=== PATIENT | female | born 1995 | race African-American/Black ===

== ENCOUNTER 2019-09-24 15:54 | Emergency (ER) | payer BC ==
[2019-09-24] MEDS ORDERED: NS 0.9% 1000 ML** 1,000 ML IV ONE (15:57)
[2019-09-24] MEDS ORDERED: methylPREDNISolone 125 MG* 2 ML VIAL IV ONE (15:57)
[2019-09-24] MEDS ORDERED: Famotidine IV* 10 MG/ML 2 ML (20 mg) IV SLOW PU ONE (15:57)
--- NOTE | 2019-09-24 15:59 | ED ---
Allergic Reaction/Systemic - HPI Summary HPI Summary: This patient is a 23 year old female brought in by EMS presenting to [facility] with a chief complaint of allergic reaction. The patient was walking into an academic building when suddenly she started sneezing and she started to notice swelling in her face, SOB, nasal congestion and throat tightening, realizing she was having an allergic reaction. She went to [facility] where they gave her epinephrine and nebulizer treatments to help her breathing, and then was brought here by EMS. She states she feels most of her symptoms have resolved, other than some facial swelling and nasal congestion. She states she has a nut allergy, does not believe she had nuts and is unsure what caused the reaction. Medications reviewed, allergies noted. - History of Current Complaint Hx Obtained From: Patient, EMS Onset/Duration: Started hours ago - Allergies/Home Medications Allergies/Adverse Reactions: Allergies Allergy/AdvReac Type Severity Reaction Status Date / Time legumes Allergy Swelling Verified 09/24/19 15:57 Of Face,Lips,& Throat peanut Allergy Anaphylatic Verified 09/24/19 15:57 Shock PMH/Surg Hx/FS Hx/Imm Hx Endocrine/Hematology History: Denies: Hx Diabetes Cardiovascular History: Denies: Hx Coronary Artery Disease - Family History Known Family History: Negative: Cardiac Disease - Social History Occupation: Student Alcohol Use: Occasionally Hx Substance Use: No Hx Tobacco Use: No Review of Systems Positive: Sore Throat, Nasal Discharge Positive: Edema - Facial All Other Systems Reviewed And Are Negative: Yes Physical Exam - Summary Physical Exam Summary: Constitutional: Well-developed, Well-nourished, Alert. (-) Distressed Skin: Warm, Dry HENT: Normocephalic; Atraumatic Eyes: Conjunctiva normal. Bilateral edema under the eyes. Neck: Musculoskeletal ROM normal neck. (-) JVD, (-) Stridor, (-) Tracheal deviation Cardio: Rhythm regular, rate normal, Heart sounds normal; Intact distal pulses; Radial pulses are 2+ and symmetric. (-) Murmur Pulmonary/Chest wall: Effort normal. (-) Respiratory distress, (-) Wheezes, (-) Rales Abd: Soft, (-) tenderness, (-) Distension, (-) Guarding, (-) Rebound Musculoskeletal: (-) Edema Lymph: (-) Cervical adenopathy Neuro: Alert, Oriented x3 Psych: Mood and affect Normal Triage Information Reviewed: Yes Vital Signs On Initial Exam: Temp Pulse Resp BP Pulse Ox 98.8 F 110 16 134/82 98 09/24/19 15:55 09/24/19 15:55 09/24/19 15:55 09/24/19 15:55 09/24/19 15:55 Vital Signs Reviewed: Yes Procedures - Sedation Patient Received Moderate/Deep Sedation with Procedure: No Allergic Reaction Course/Dx - Course Course Of Treatment: Patient is here with a possible anaphylactic reaction to unknown allergen. Patient was seen by [facility] where she was short of breath with swelling to her face. Patient was given epinephrine, Benadryl and a nebulizer treatment by them. Patient sent here via ambulance. Upon arrival here, patient was feeling much better with no shortness of breath or feeling that her neck was swelling. Patient did have some swelling underneath her eyes bilaterally. Patient was given Pepcid and a dose of Solu-Medrol. Patient was monitored for 2 hours with no recurrence of her symptoms. Patient has an EpiPen at home. Patient was discharged. - Diagnoses Provider Diagnoses: Allergic reaction, Anaphylaxis Discharge ED - Sign-Out/Discharge Documenting (check all that apply): Patient Departure - Discharge - Discharge Plan Condition: Stable Disposition: HOME Patient Education Materials: General Allergic Reaction (ED) Referrals: No Primary Care Phys,NOPCP [Primary Care Provider] - Additional Instructions: Take your epipen you already have everywhere you go and use it if experiencing a reaction and call 911. Return with shortness of breath, vomiting, diarrhea, or if you feel like your throats closing. - Billing Disposition and Condition Condition: STABLE Disposition: Home - Attestation Statements Document Initiated by Juli: Yes Documenting Scribe: Steven Sotelo Provider For Whom Juli is Documenting (Include Credential): Artemio Elliott MD Scribe Attestation: Steven Dos Santos, scribed for Artemio Elliott MD on 09/25/19 at 1146. Scribe Documentation Reviewed: Yes Provider Attestation: The documentation as recorded by the Steven gastelum accurately reflects the service I personally performed and the decisions made by me, Artemio Elliott MD Status of Scribe Document: Viewed
[2019-09-24 18:19] VITALS: BP 110/74
== END 2019-09-24 18:18 | disposition home or self-care (01) ==
LOC: ED 15:54
DX: T78.2XXA Anaphylactic shock, unspecified, initial encounter (principal)
CPT/HCPCS: 96361; 96374; 96375; 99283; J2930